=== PATIENT | female | born 1985 | race Two or more races ===

== ENCOUNTER 2017-12-13 14:55 | Emergency (ER) | payer OTHER ==
[~2017-12-13] VITALS: Ht 149.9 cm; Wt 86.2 kg
--- NOTE | 2017-12-13 15:37 | Emergency Room Report ---
History of Present Illness General Chief Complaint: General Complaint Source: Patient, Medical Record Present Illness HPI 32-year-old female patient presents ER complaining of intermittent chest pain for the past week. Reports intermittent left arm numbness and headache symptoms during this time. Denies history of heart attack or heart disease. Reports currently taking any blood thinner medications, hypertension medications or control. Denies smoking. Denies dysuria, hematuria, other acute symptoms. Reports history of asthma, denies wheezing. Denies history of IN. Denies abdominal pain. reports history of anxiety, not currently taking any medications. Denies of hurting himself or others at this time. reports dry cough during this time. denies long periods of immobilization or recent travel. Denies history of cancer. Denies smoking cigarettes. states has not had to use inhaler, requesting refill of his inhaler medication. Reports LMP normal. Denies heavy vaginal bleeding. Reports arm numbness usually occurs during panic attacks. Allergies: Coded Allergies: No Known Allergies (Unverified , 07/21/15) Patient History Past Medical History: see triage record Last Menstrual Period: 11/21/17 Reviewed Nursing Documentation: PMH: Agreed; PSxH: Agreed Nursing Documentation-PMH Past Medical History: No History, Except For Hx Asthma: Yes History Of Psychiatric Problem: No - anxitey Review of Systems All Other Systems: negative except mentioned in HPI Physical Exam Vital Signs Date Time Temp Pulse Resp B/P (MAP) Pulse Ox O2 Delivery O2 Flow Rate FiO2 12/13/17 14:59 98.2 115 18 119/84 96 Room Air 98.2 Sp02 EP Interpretation: reviewed, normal General Appearance: well appearing, no apparent distress, alert, GCS 15, non- toxic Head: normocephalic, atraumatic Eyes: bilateral eye normal inspection, bilateral eye PERRL ENT: hearing grossly normal, normal pharynx, no angioedema, normal voice, TMs + canals normal, uvula midline, moist mucus membranes Neck: full range of motion, no bony tend Respiratory: chest non-tender, lungs clear, normal breath sounds, no rhonchi, no respiratory distress, no accessory muscle use, no wheezing, speaking full sentences Cardiovascular #1: regular rate, rhythm, no edema Gastrointestinal: non tender, soft, no mass, non-distended, no guarding, no rebound Musculoskeletal: back normal, digits/nails normal, gait/station normal, normal range of motion, non-tender, no calf tenderness, Eusebia's Sign negative Neurologic: alert, oriented x3, responsive, early intervention specialist III-XII nml as tested, motor strength/tone normal, sensory intact, cerebellar normal, normal gait, speech normal, other - negative Kernig, negative Brudzinski Psychiatric: mood/affect normal Skin: no rash Lymphatic: no adenopathy Medical Decision Making PA Attestation Dr. Justice is my supervising Physician whom patient management has been discussed with. Diagnostic Impression: Primary Impression: Non-cardiac chest pain ER Course Pt. presents to the ED c/o chest pain. Ddx considered but are not limited to IN, arrhythmia, DVT, PE, pneumonia, bronchitis, costochondritis, anxiety, UTI, , drug use, pericarditis. No calf swelling, negative Eusebia's sign, low suspicion for DVT pr PE per Well's criteria. Does not require CT chest at this time. Low suspicion for cardiac cause of pain. Will order labs to rule out. negative Kernig, negative Brudzinski,, patient is afebrile, low suspicion for meningitis. Vital signs: are WNL, pt. is afebrile Ordered X-ray, labs, troponin, EKG and pain medication. ER COURSE lungs clear to auscultation, no wheezes, rhocni OR rales. does not require breathing treatment at this time. Will provide refill of asthma medication patient at discharge. EKG shows normal sinus rhythm with mild tachycardia, will order chest x-ray and basic labs. CBC mild elevation of WBCs, likely due to pain symptoms, no obvious signs of infection, patient afebrile, does not require antibiotics at this time. CMP unremarkable UA shows multiple epithelial cells, patient asymptomatic, UTI unlikely does not require antibiotics at this time. urine negative Urine drug screen negative Troponin negative CXR negative for acute disease. Negative EKG and chest x-ray, troponin negative, low suspicion for IN or CHF, low suspicion for cardiac etiology of pain, advised patient follow-up with primary care provider for close outpatient followup. patient wants to know if anxiety symptoms could be causing her chest pain symptoms. Informed patient that anxiety could be responsible, needs further outpatient evaluation and treatment, follow-up with therapist to discuss anxiety symptoms. Take Tylenol for pain symptoms. Followup with primary care provider, discuss referral to cardiology. patient denies shortness of breath, EKG and chest x-ray unremarkable, troponin negative, low suspicion for IN or CHF. DISCHARGE: -Rx provided for Tylenol for pain symptoms. At this time pt. is stable for d/c to home. Patient is resting comfortably, in no acute distress, nontoxic appearing, talking without difficulty. Will provide printed patient care instructions, and any necessary prescriptions. Patient instructed to follow with primary care provider in 1-3 days. Followup with primary care provider for further pain medication rx. Followup with wind turbine design engineer and eye doctor. Care plan and follow up instructions have been discussed with the patient prior to discharge. Take medications as directed. Patient questions asked and answered. Patient reports understanding and agreement to treatment plan. ER precautions given, patient instructed to return to ER immediately for any new or worsening of symptoms. - Please note that this Emergency Department Report was dictated using Web [employer] sales expert technology software, occasionally this can lead to erroneous entry secondary to interpretation by the dictation equipment. Labs Test 12/13/17 15:45 White Blood Count 11.4 K/UL (4.8-10.8) Red Blood Count 4.89 M/UL (4.20-5.40) Hemoglobin 14.1 G/DL (12.0-16.0) Hematocrit 41.1 % (37.0-47.0) Mean Corpuscular Volume 84 FL (80-99) Mean Corpuscular Hemoglobin 28.8 PG (27.0-31.0) Mean Corpuscular Hemoglobin Concent 34.3 G/DL (32.0-36.0) Red Cell Distribution Width 13.7 % (11.6-14.8) Platelet Count 317 K/UL (150-450) Mean Platelet Volume 9.1 FL (6.5-10.1) Neutrophils (%) (Auto) 80.2 % (45.0-75.0) Lymphocytes (%) (Auto) 13.7 % (20.0-45.0) Monocytes (%) (Auto) 4.9 % (1.0-10.0) Eosinophils (%) (Auto) 0.5 % (0.0-3.0) Basophils (%) (Auto) 0.7 % (0.0-2.0) Urine Color Pale yellow Urine Appearance Cloudy Urine pH 6 (4.5-8.0) Urine Specific [place] 1.005 (1.005-1.035) Urine Protein Negative (NEGATIVE) Urine Glucose (UA) Negative (NEGATIVE) Urine Ketones Negative (NEGATIVE) Urine Blood Negative (NEGATIVE) Urine Nitrite Negative (NEGATIVE) Urine Bilirubin Negative (NEGATIVE) Urine Urobilinogen Normal MG/DL (0.0-1.0) Urine Leukocyte Esterase 3+ (NEGATIVE) Urine RBC 0-2 /HPF (0 - 2) Urine WBC 10-15 /HPF (0 - 2) Urine Squamous Epithelial Cells Moderate /LPF (NONE/OCC) Urine Bacteria Moderate /HPF (NONE) Urine HCG, Qualitative Negative (NEGATIVE) Sodium Level 138 MMOL/L (136-145) Potassium Level 3.8 MMOL/L (3.5-5.1) Chloride Level 102 MMOL/L (98-107) Carbon Dioxide Level 23 MMOL/L (21-32) Anion Gap 13 mmol/L (5-15) Blood Urea Nitrogen 16 mg/dL (7-18) Creatinine 0.8 MG/DL (0.55-1.30) Estimat Glomerular Filtration Rate > 60 mL/min (>60) Glucose Level 117 MG/DL (74-106) Calcium Level 10.0 MG/DL (8.5-10.1) Total Bilirubin 0.4 MG/DL (0.2-1.0) Aspartate Amino Transf (AST/SGOT) 20 U/L (15-37) Alanine Aminotransferase (ALT/SGPT) 37 U/L (12-78) Alkaline Phosphatase 76 U/L (46-116) Troponin I 0.000 ng/mL (0.000-0.056) Total Protein 8.8 G/DL (6.4-8.2) Albumin 4.2 G/DL (3.4-5.0) Globulin 4.6 g/dL Albumin/Globulin Ratio 0.9 (1.0-2.7) Urine Opiates Screen Negative (NEGATIVE) Urine Barbiturates Screen Negative (NEGATIVE) Phencyclidine (PCP) Screen Negative (NEGATIVE) Urine Amphetamines Screen Negative (NEGATIVE) Urine Benzodiazepines Screen Negative (NEGATIVE) Urine Cocaine Screen Negative (NEGATIVE) Urine Marijuana (THC) Screen Negative (NEGATIVE) EKG Diagnostic Results Rate: tachycardiac Rhythm: NSR ST Segments: other ASA given to the pt in ED: No PA ScribKe Padron PA-C Rhythm Strip Diag. Results EP Interpretation: yes Rate: 106 Rhythm: NSR, no PVC's, no ectopy JOHANA Padron PA-C Chest X-Ray Diagnostic Results Chest X-Ray Diagnostic Results : Chest X-Ray Ordered: Yes # of Views/Limited/Complete: 1 View Indication: Chest Pain EP Interpretation: Yes PA Xray: Interpretation reviewed, by supervising MD JOHANA Padron PA-C Last Vital Signs Date Time Temp Pulse Resp B/P (MAP) Pulse Ox O2 Delivery O2 Flow Rate FiO2 12/13/17 14:59 98.2 115 18 119/84 96 Room Air 98.2 Status: improved Disposition: HOME, SELF-CARE Condition: Stable Scripts Albuterol Sulfate* (ALBUTEROL SULFATE MDI*) 8.5 Gm Hfa.aer.ad 2 PUFF INH Q6H, #1 INH 0 Refills Prov: Bobby Padron 12/13/17 Acetaminophen* (TYLENOL EXTRA STRENGTH*) 500 Mg Tablet 500 MG ORAL Q8H PRN for Prn Headache/Temp > 101, #30 TAB 0 Refills Prov: Bobby Padron 12/13/17 Patient Instructions: Generalized Anxiety Disorder, Nonspecific Chest Pain Additional Instructions: Followup with primary care provider in 3 -5 days. Followup with therapist to discuss anxiety symptoms. Take medications as directed. Patient questions asked and answered. ER precautions given, patient instructed to return to ER immediately for any new or worsening of symptoms. Bobby Padron Dec 13, 2017 15:37
[2017-12-13 15:59] LABS: APPEARANCE,URINE CLOUDY; BASOPHILS % (AUTO) 0.7 % (0.0-2.0); BILIRUBIN, URINE NEGATIVE (NEGATIVE); COLOR,URINE PALE YELLOW; EOSINOPHILS % (AUTO) 0.5 % (0.0-3.0); GLUCOSE, URINE (UA) NEGATIVE (NEGATIVE); HEMATOCRIT 41.1 % (37.0-47.0); HEMOGLOBIN 14.1 G/DL (12.0-16.0); KETONES,URINE NEGATIVE (NEGATIVE); LEUKOCYTE ESTERASE ,URINE 3+ (NEGATIVE); LYMPHOCYTES % (AUTO) 13.7 % (20.0-45.0); MEAN CORPUSCULAR VOLUME 84 FL (80-99); MONOCYTES % (AUTO) 4.9 % (1.0-10.0); NEUTROPHILS % (AUTO) 80.2 % (45.0-75.0); NITRITE,URINE NEGATIVE (NEGATIVE); PH,URINE 6 (4.5-8.0); PLATELET COUNT 317 K/UL (150-450); PROTEIN,URINE NEGATIVE (NEGATIVE); RED BLOOD COUNT 4.89 M/UL (4.20-5.40); RED CELL DISTRIBUTION WIDTH 13.7 % (11.6-14.8); UROBILINOGEN,URINE NORMAL MG/DL (0.0-1.0); WHITE BLOOD COUNT 11.4 K/UL (4.8-10.8)
[2017-12-13] MEDS ORDERED: Acetaminophen 500mg (ES) tab ORAL ONE (16:00)
[2017-12-13 16:07] VITALS: BP 119/84
[2017-12-13 16:09] LABS: ANION GAP 13 mmol/L (5-15); BLOOD UREA NITROGEN 16 mg/dL (7-18); CARBON DIOXIDE 23 MMOL/L (21-32); CHLORIDE 102 MMOL/L (98-107); CREATININE 0.8 MG/DL (0.55-1.30); POTASSIUM 3.8 MMOL/L (3.5-5.1); SODIUM 138 MMOL/L (136-145)
[2017-12-13 16:14] LABS: ALANINE AMINOTRANSFERASE 37 U/L (12-78); ALBUMIN 4.2 G/DL (3.4-5.0); ALBUMIN/GLOBULIN RATIO 0.9 (1.0-2.7); ALKALINE PHOSPHATASE 76 U/L (46-116); ASPARTATE AMINO TRANSFERASE 20 U/L (15-37); BILIRUBIN,TOTAL 0.4 MG/DL (0.2-1.0)
--- NOTE | 2017-12-13 16:34 | Diagnostic Imaging Report ---
Indication: Chest pain Comparison: None A single view chest radiograph was obtained. Findings: Cardiomediastinal appearance is within normal limits for age. The lungs are clear. Pulmonary vascularity is appropriate. The diaphragmatic contour is smooth and costophrenic angles are sharp. No pleural effusions are identified. The bones are unremarkable. Impression: No acute findings
[2017-12-13] MEDS ORDERED: TYLENOL EXTRA500 MG ORAL (17:25)
[2017-12-13] MEDS ORDERED: ALBUTEROL SULF8.5 GM INH (17:38)
[2017-12-13 17:46] VITALS: BP 119/84
--- NOTE | 2017-12-15 12:04 | Cardiology Report ---
APPROVED REPORT EKG Measurement Heart [id number] MI [id number] Sinus tachycardia Cannot rule out Anterior infarct, age undetermined Abnormal ECG
== END 2017-12-13 17:46 | disposition home or self-care (01) ==
LOC: EMR 15:40
DX: R07.89 Other chest pain (principal); J45.909 Unspecified asthma, uncomplicated
CPT/HCPCS: 36415; 71045; 80053; 80307; 81003; 81025; 84484; 85025; 87086; 93005; 99283

== ENCOUNTER 2018-05-17 05:55 | Emergency (ER) | payer SELFPAY ==
[~2018-05-17] VITALS: Ht 149.9 cm; Wt 99.3 kg
[~2018-05-17 05:55] MED LIST: ALBUTEROL SULF8.5 GM INH; TYLENOL EXTRA500 MG ORAL
[2018-05-17 06:15] VITALS: BP 127/84
[2018-05-17] MEDS ORDERED: NKM (06:15)
--- NOTE | 2018-05-17 06:15 | NUR ---
ED Nurse Note: pt walked in c/o lower back pain started 05/16/2018. pt stated she went to pick a box then she heard a crack on her back when she lift the box. seen by aquiles. pt is complaining 7/10 pain on lower back when changing positon. will continue to monitor.
[2018-05-17] MEDS ORDERED: HYDROmorphone 1mg/ml Carpuject IM ONE (06:30)
[2018-05-17] MEDS ORDERED: HYDROCODON-ACE1 EA15 ORAL (06:52)
[2018-05-17] MEDS ORDERED: IBUPROFEN600 MG ORAL (06:52)
--- NOTE | 2018-05-17 06:53 | Emergency Room Report ---
History of Present Illness General Chief Complaint: Lower Back Pain or Injury Source: Patient Present Illness HPI Is a 33-year-old female with no past medical history. She presents with chief complaint of lower back pain. Onset couple days ago. She felt some pain when she suddenly got off the bed quickly. And then when she bent over to package pick up something, she felt sharp pain to the left side of the lower back radiating to the buttock area. Worse with movement. Pain is throbbing and achy nature. 8 out of 10. Worse with movement. Worse with certain position. Better with rest. No incontinence of bowel or urine. No fever chills but no trauma. No anesthesia. Allergies: Coded Allergies: No Known Allergies (Unverified , 07/21/15) Patient History Past Medical History: see triage record, old chart reviewed Past Surgical History: none Pertinent Family History: none Social History: Denies: smoking Last Menstrual Period: may Now: No : 0 Immunizations: other Reviewed Nursing Documentation: PMH: Agreed; PSxH: Agreed Nursing Documentation-PMH Hx Asthma: Yes Review of Systems Eye: Denies: eye pain, blurred vision ENT: Denies: ear pain, nose congestion, throat swelling Respiratory: Denies: cough, shortness of breath Cardiovascular: Denies: chest pain, palpitations Gastrointestinal: Denies: abdominal pain, diarrhea, nausea, vomiting Musculoskeletal: Reports: back pain; Denies: joint pain Skin: Denies: rash Neurological: Denies: headache, numbness Endocrine: Denies: increased thirst, increased urine Hematologic/Lymphatic: Denies: easy bruising All Other Systems: negative except mentioned in HPI Physical Exam Vital Signs Date Time Temp Pulse Resp B/P (MAP) Pulse Ox O2 Delivery O2 Flow Rate FiO2 05/17/18 06:11 97.7 103 16 127/84 97 Room Air vitals normal Sp02 EP Interpretation: reviewed, normal General Appearance: well appearing, no apparent distress, alert Head: normocephalic, atraumatic Eyes: bilateral eye PERRL, bilateral eye EOMI ENT: hearing grossly normal, normal pharynx Neck: full range of motion, supple, no meningismus Respiratory: chest non-tender, lungs clear, normal breath sounds Cardiovascular #1: regular rate, rhythm, no murmur Gastrointestinal: normal bowel sounds, non tender, no mass, no organomegaly, no bruit, non-distended Musculoskeletal: back normal - Tenderness to the left lower lumbar area/upper sacral area., gait/station normal, normal range of motion Neurologic: alert, oriented x3 Psychiatric: mood/affect normal Skin: warm/dry Medical Decision Making Diagnostic Impression: Primary Impression: Low back pain Qualified Codes: M54.5 - Low back pain ER Course Patient presents with lower back pain. This is probably from patient her versus herniated disc versus sacroiliitis. No evidence of cauda equina syndrome , spinal epidural abscess or neoplastic process. I see no need for x-rays. If continue with pain, may knee MRI. Explained this to patient and she expressed understanding. Last Vital Signs Date Time Temp Pulse Resp B/P (MAP) Pulse Ox O2 Delivery O2 Flow Rate FiO2 05/17/18 06:45 97.7 05/17/18 06:15 103 16 127/84 97 Room Air Status: improved Disposition: HOME, SELF-CARE Condition: Stable Scripts Ibuprofen* (MOTRIN*) 600 Mg Tablet 600 MG ORAL THREE TIMES A DAY, #30 TAB 0 Refills Prov: Barron Griffin MD 05/17/18 Hydrocodone/Acetaminophen 5-325* (HYDROCODONE/ACETAMINOPHEN 5-325*) 1 Each Tablet 1 TAB ORAL Q6H PRN for For Pain, #20 TAB 0 Refills Prov: Barron Griffin MD 05/17/18 Patient Instructions: Back Pain, Adult Additional Instructions: Follow-up with your doctor in 7 days. If continue with pain, may need MRI. Return if symptom worsen. Barron Griffin MD May 17, 2018 06:53
[2018-05-17 07:01] VITALS: BP 127/84
--- NOTE | 2018-05-17 07:01 | NUR ---
ER DISCHARGE NOTE: Patient is cleared to be discharged per ERMD, pt is aox4, on room air, with stable vital signs. pt was given dc and prescription instructions, pt was able to verbalize understanding, pt id band removed. pt is able to ambulate with steady gait. pt took all belongings.
== END 2018-05-17 07:05 | disposition home or self-care (01) ==
LOC: EMR 06:55
DX: M54.5 Low back pain (principal); J45.909 Unspecified asthma, uncomplicated
CPT/HCPCS: 96372; 99283; J1170

== ENCOUNTER 2019-02-27 18:32 | Emergency (ER) | payer OTHER ==
[~2019-02-27] VITALS: Ht 149.9 cm; Wt 93.4 kg
[~2019-02-27 18:32] MED LIST changes: +HYDROCODON-ACE1 EA15 ORAL; +IBUPROFEN600 MG ORAL; +NKM
[2019-02-27 18:49] VITALS: BP 119/81
[2019-02-27] MEDS ORDERED: Lidocaine 2% MPF 5ml Vial INJ ONE (19:30)
--- NOTE | 2019-02-27 20:27 | Emergency Room Report ---
History of Present Illness General Chief Complaint: Skin Rash/Abscess Source: Patient Present Illness HPI 33 YO female presents to the ED c/o 07/11 in severity pain, swelling, and erythema of right great toe x 1 day. Pt. reports hx of ingrown toenail. she denies hx of trauma or fall. She denies recent pedicure or trimming of her nail. Patient states in the past she has trimmed her nail to help reduce the ingrown toenail. Patient reports increase in erythema and that she is also noticing some swelling. Patient states she has tried several Epson salt soaks at home which provided some minimal relief. No other aggravating or relieving factors at this time. Patient states she is up-to-date with all vaccinations she denies history of immune compromise or diabetes. Allergies: Coded Allergies: No Known Allergies (Unverified , 07/21/15) Patient History Past Surgical History: unable to obtain Pertinent Family History: none Last Menstrual Period: 01/28/19 Now: No Reviewed Nursing Documentation: PMH: Agreed; PSxH: Agreed Nursing Documentation-PMH Past Medical History: No History, Except For Hx Asthma: Yes Review of Systems All Other Systems: negative except mentioned in HPI Physical Exam Vital Signs Date Time Temp Pulse Resp B/P (MAP) Pulse Ox O2 Delivery O2 Flow Rate FiO2 02/27/19 18:36 97.5 129 16 119/81 (94) 99 Room Air Sp02 EP Interpretation: reviewed, normal General Appearance: no apparent distress, alert, GCS 15, non-toxic Head: normocephalic, atraumatic Eyes: bilateral eye normal inspection, bilateral eye PERRL ENT: hearing grossly normal, normal voice Neck: full range of motion Respiratory: lungs clear, normal breath sounds, speaking full sentences Cardiovascular #1: regular rate, rhythm, normal capillary refill Musculoskeletal: normal range of motion, gait/station normal, tender - medial cuticle of the right great toe nail. erythema, swelling and warmth noted with some purulence visible under the skin., swelling Neurologic: alert, motor strength/tone normal, oriented x3, sensory intact, responsive, speech normal Psychiatric: judgement/insight normal Skin: other - medial cuticle of the right great toe nail. erythema, swelling and warmth noted with some purulence visible under the skin Lymphatic: no adenopathy Procedures Additional Procedure Procedure Narrative Wedge resection procedure: - verbal permission was obtained. - extremity involved is the medial aspect of the cuticle line of the right great toe -5cc of Lidocaine 2% plain was injected in a digital block fashion, good anesthesia was obtained. - The extremity was Cleaned and draped in a sterile fashion - The Medial aspect of the nail was exposed and isolated from the nail bed. -Section of the lateral aspect of the nail was cut by sterile scissors. - bleeding was controlled with direct pressure. -Sterile dressing was applied. Pt. tolerated the procedure well, there were no complications. Medical Decision Making PA Attestation Dr. Acuna Is my supervising Physician whom patient management has been discussed with. Diagnostic Impression: Primary Impression: Ingrown right greater toenail Additional Impression: Paronychia due to ingrown nail ER Course 33 YO female presents to the ED c/o 07/11 in severity pain, swelling, and erythema of right great toe x 1 day. Pt. reports hx of ingrown toenail. she denies hx of trauma or fall. She denies recent pedicure or trimming of her nail. Patient states in the past she has trimmed her nail to help reduce the ingrown toenail. Patient reports increase in erythema and that she is also noticing some swelling. Patient states she has tried several Epson salt soaks at home which provided some minimal relief. No other aggravating or relieving factors at this time. Patient states she is up-to-date with all vaccinations she denies history of immune compromise or diabetes. Ddx considered but are not limited to cellulitis, paronychia, eponychia, ingrown toe nail, fracture, d/L, gout Vital signs: are WNL, pt. is afebrile H&PE are most consistent with Paronychia and ingrown right great toenail ORDERS: none required at this time, the diagnosis is clinical ED INTERVENTIONS: - verbal consent was received . - lesion was cleaned with Betadine prep. -Anesthetized using ring block with 2% lidocaine plain - Wedge resection technique performed for removal of the medial aspect of the right great toenail. pt. tolerated well without complication. - bacitracin and sterile band-aid was then applied afterward. - will d/c pt. with PO abx. DISCHARGE: At this time pt. is stable for d/c to home. Will provide printed patient care instructions, and any necessary prescriptions. Care plan and follow up instructions have been discussed with the patient prior to discharge. Last Vital Signs Date Time Temp Pulse Resp B/P (MAP) Pulse Ox O2 Delivery O2 Flow Rate FiO2 02/27/19 18:49 97.5 84 16 119/81 99 Room Air Disposition: HOME, SELF-CARE Condition: Stable Scripts Bacitracin/Polymyxin B Sulfate (BACITRACIN-POLYMYXIN OINTMENT) 28.35 Gm Oint...g. 1 APPLIC TP BID, #28.3 GM Prov: Manuela Bruno 02/27/19 Ibuprofen* (MOTRIN*) 600 Mg Tablet 600 MG ORAL THREE TIMES A DAY, #30 TAB 0 Refills Prov: Manuela Bruno 02/27/19 Amoxicillin/Potassium Clav 875-125* (AUGMENTIN 875-125 TABLET*) 1 Each Tablet 1 TAB ORAL TWICE A DAY for 7 Days, #14 TAB Prov: Manuela Bruno 02/27/19 Referrals: NON PHYSICIAN (PCP) Patient Instructions: Ingrown Toenail Additional Instructions: Take medications as directed. Follow up with a Primary Care Provider in 3-5 days, even if your symptoms have resolved. Return sooner to ED if new symptoms occur, or current symptoms become worse. - Please note that this Emergency Department Report was dictated using [employer]imoon[employer] lithographic technology software, occasionally this can lead to erroneous entry secondary to interpretation by the dictation equipment. Manuela Bruno Feb 27, 2019 20:27
[2019-02-27] MEDS ORDERED: AUGMENTIN 875-1 EAC1 ORAL (20:28)
[2019-02-27] MEDS ORDERED: IBUPROFEN600 MG ORAL (20:28)
[2019-02-27] MEDS ORDERED: BACITRACIN-P28.35 GM TP (20:28)
[2019-02-27] MEDS ORDERED: Bacitracin Oint UD TOPIC ONE (20:30)
[2019-02-27 20:40] VITALS: BP 119/81
== END 2019-02-27 20:40 | disposition home or self-care (01) ==
LOC: EMR 19:00
DX: L60.0 Ingrowing nail (principal); L03.031 Cellulitis of right toe; J45.909 Unspecified asthma, uncomplicated
CPT/HCPCS: 11750; Z7502; 99282